=== PATIENT | female | born 1935 | race Caucasian/White ===

== ENCOUNTER 2018-05-22 08:43 | Day surgery (SDC) | payer OTHER ==
[~2018-05-22 08:43] MED LIST: COZAAR100 MG PO; LIPITOR20 MG PO; NORVASC2.5 M1 PO; PROBIOTIC & AC1 EACH PO; TRAM1TAB98 PO
== END 2018-05-22 13:20 | disposition home or self-care (01) ==
LOC: AMB-ENDOS 08:43
DX: K64.8 Other hemorrhoids (principal); K63.89 Other specified diseases of intestine; K57.30 Diverticulosis of large intestine without perforation or abscess without bleeding; Z86.010 Personal history of colon polyps; Z09 Encounter for follow-up examination after completed treatment for conditions other than malignant neoplasm